=== PATIENT | female | born 1935 | race Caucasian/White ===

== ENCOUNTER 2019-08-06 20:40 | Inpatient (IN) | payer MEDICARE, MEDICAID ==
[~2019-08-06] VITALS: Ht 175.3 cm; Wt 59.9 kg
--- NOTE | 2019-08-06 21:04 | NUR ---
PT AAOX4. SENEGALESE SPEAKING. KATHIA FROM [facility]. PER SON, "THE NURSE SAW PUSS COMING OUT OF HER PRSSURE ULCER, SO THE DOCTOR ORDERED A CT AND SENT US HERE." PT NOTED CONTRACTED ON L SIDE. PT C/O PAIN BUT IS JAIL. VSS. AWAITING MD FOR EVAL.
--- NOTE | 2019-08-06 21:37 | NUR ---
LABS AND URINE SENT TO LAB
[2019-08-06 21:48] LABS: BASOPHILS # (AUTO) 0.1 /CMM (0.0-0.2); BASOPHILS % (AUTO) 0.6 % (0.0-2.0); EOSINOPHILS % (AUTO) 3.6 % (0.0-6.0); HEMATOCRIT 28 % (33-45); HEMOGLOBIN 8.8 g/dL (11.5-14.8); LYMPHOCYTES # (AUTO) 1.1 /CMM (0.8-4.8); LYMPHOCYTES % (AUTO) 10.4 % (20.0-44.0); MEAN CORPUSCULAR HGB CONC 32 g/dl (31.0-36.0); MEAN CORPUSCULAR VOLUME 78 fL (82-100); MONOCYTES # (AUTO) 0.9 /CMM (0.1-1.30); MONOCYTES % (AUTO) 9.1 % (2.0-12.0); NEUTROPHILS # (AUTO) 7.7 /CMM (1.8-8.9); NEUTROPHILS % (AUTO) 76.3 % (43.0-81.0); PLATELET COUNT (AUTO) 378 /CMM (150-450); RED BLOOD CELL COUNT(AUTO) 3.54 MIL/uL (4.0-5.2); WHITE BLOOD COUNT (AUTO) 10.2 K/uL (4.3-11.0)
[2019-08-06 21:53] LABS: APPEARANCE,URINE Turbid (CLEAR); BILIRUBIN,URINE Negative (NEGATIVE); BLOOD, URINE Negative Ery/uL (NEGATIVE); COLOR,URINE Yellow (YELLOW); KETONES,URINE Negative (NEGATIVE); LEUKOCYTE ESTERASE ,URINE Moderate (NEGATIVE); NITRITE, URINE Positive (NEGATIVE); PROTEIN,URINE >=300 mg/dl (NEGATIVE); UGLUCOSE Negative (NEGATIVE); UROBILINOGEN,URINE 0.2 EU/dL (0.2)
[2019-08-06 21:56] LABS: PH,URINE >9.0 (5.0-8.0)
[2019-08-06 22:01] LABS: CALCIUM, SERUM 8.5 mg/dL (8.5-10.1); CREATININE 1.1 mg/dL (0.6-1.3); POTASSIUM 4.2 mmol/L (3.5-5.1)
[2019-08-06 22:03] LABS: BACTERIA,URINE Many /HPF (None Seen); SQUAMOUS EPITHELIAL CELL,UR Moderate /HPF (None Seen); YEAST,URINE Many /HPF (None Seen)
[2019-08-06 22:07] LABS: BILIRUBIN,DIRECT 0.1 mg/dL (0.0-0.2); BILIRUBIN,TOTAL 0.2 mg/dL (0.2-1.0); TOTAL PROTEIN, SERUM 7.2 g/dL (6.4-8.2)
[2019-08-06 22:08] LABS: ALBUMIN 1.4 g/dL (3.4-5.0)
[2019-08-06] MEDS ORDERED: PIPERACILLIN /TAZOBACTAM 3.375 G VIAL IV ONE (22:57)
[2019-08-06] MEDS ORDERED: PIPERACILLIN /TAZOBACTAM 3.375 G in IV D5W 50 ML IV ONE (23:00)
[2019-08-06] MEDS ORDERED: ASPI-1169 PO (23:24)
[2019-08-06] MEDS ORDERED: CHOL200076 PO (23:24)
[2019-08-06] MEDS ORDERED: ONDA4TAB5 PO (23:24)
[2019-08-06] MEDS ORDERED: PROT946L PO (23:24)
[2019-08-06] MEDS ORDERED: ATOR40TA PO (23:24)
[2019-08-06] MEDS ORDERED: DICL100G16 TP (23:24)
[2019-08-06] MEDS ORDERED: MULT1TAB73 PO (23:24)
[2019-08-06] MEDS ORDERED: OXYC-132 PO (23:24)
[2019-08-06] MEDS ORDERED: NYST15PO4 TP (23:24)
[2019-08-06] MEDS ORDERED: EPOE1VIA7 SQ (23:24)
[2019-08-06] MEDS ORDERED: INSU100V42 SQ (23:24)
[2019-08-06] MEDS ORDERED: ASCO-340 PO (23:24)
[2019-08-06] MEDS ORDERED: INSU100V7 SQ (23:24)
[2019-08-06] MEDS ORDERED: FERR325T23 PO (23:24)
--- NOTE | 2019-08-06 23:34 | NUR ---
Patient is resting comfortably in bed. Easily aroused. VSS.
--- NOTE | 2019-08-06 23:42 | NUR ---
PT DENIES PAIN. VSS.
[2019-08-07] MEDS ORDERED: VANCOMYCIN 1 GM in IV D5W 250 ML IV ONE (00:30)
[2019-08-07] MEDS ORDERED: DEXTROSE 50%-WATER 50 ML DISP.SYRIN IV PRN (00:30)
[2019-08-07] MEDS ORDERED: ACETAMINOPHEN 325 MG TABLET PO PRN (00:30)
[2019-08-07] MEDS ORDERED: MAG HYDROX/AL HYDROX/SIMETH 30 ML UDC PO PRN (00:30)
[2019-08-07] MEDS ORDERED: Z GUARD REMEDY 2 OZ OINT TP PRN (00:30)
[2019-08-07] MEDS ORDERED: MAGNESIUM HYDROXIDE 30 ML UDC PO PRN (00:30)
[2019-08-07] MEDS ORDERED: ONDANSETRON HCL/PF 4 MG/2 ML VIAL IVP PRN (00:30)
--- NOTE | 2019-08-07 01:02 | NUR ---
PT'S CATHETER WAS LEAKING. NOTIFIED. REBOLLAR REMOVED AND NEW REBOLLAR INSERTED. PT HAS A LARGE SACRAL DECUBE. WOUND CULTURE DONE AND SENT TO LAB. NEW DRSG APPLIED.
--- NOTE | 2019-08-07 01:05 | NUR ---
APPROX 300 ML YELLOW CLOUDY URINE OUTPUT NOTED.
--- NOTE | 2019-08-07 01:38 | NUR ---
REPORT GIVEN TO LEMUEL BRANCH FOR CAREN
--- NOTE | 2019-08-07 02:30 | NUR ---
MS RN NOTE PT ADMITTED FROM ER WITH THE DX OF INFECTED DECUB SACRAL ULCER BY FIOR SKINNER DNP. A/O X 4, FORGETFUL, NO DISTRESS OR DISCOMFORT NOTED. DENIES PAIN. F/C INTACT AND PATENT DRAINING YELLOWISH COLOR URINE. SKIN ASSESSMENT DONE, PICTURES TAKEN AND PLACE THEM IN THE CHART. WOUND CONSULT TRIGGERED. RFA WITH SL #22 G INTACT AND PATENT. SON AT BED SIDE. ADMITTING ORDERS NOTED AND CARRIED OUT. SIDE RAILS UP X 3 AND CALL LIGHT WITHIN REACH. VSS. CONTINUE TO MONITOR HER.
[2019-08-07 02:44] VITALS: BP 155/50
[2019-08-07] MEDS ORDERED: VANCOMYCIN 1 GM VIAL ONE (03:27)
[2019-08-07] MEDS: IV NS 0.9% 1,000 ML IV PRN ×2 (03:37→17:16)
[2019-08-07 04:00] VITALS: BP 130/50
[2019-08-07] MEDS ORDERED: PIPERACILLIN /TAZOBACTAM 2.25 G VIAL IV ONE (05:50)
[2019-08-07] MEDS ORDERED: PIPERACILLIN /TAZOBACTAM 2.25 G in IV D5W 50 ML IV ONE (06:00)
--- NOTE | 2019-08-07 06:48 | NUR ---
MS RN NOTE PT IN BED AWAKE. NO DISTRESS OR DISCOMFORT NOTED. DENIES PAIN. IVF INFUSING WELL, NO S/S OF INFILTRATION NOTED. WILL ENDORSE TO DAY SHIFT NURSE FOR CONTINUE TO CARE. SIDE RAILS UP X 3 AND CALL LIGHT WITHIN REACH.
[2019-08-07 07:30] VITALS: BP 158/67
[2019-08-07] MEDS ORDERED: FEE PK DOSING 1 MIN EA MC ONE (07:56)
[2019-08-07] MEDS: BLOOD SUGAR DIAGNOSTIC 1 EACH STRIP IN SCH ×4 (08:11→22:02)
[2019-08-07] MEDS: CHOLECALCIFEROL 1,000 UNIT TABLET (VIT D3) PO SCH (09:14)
[2019-08-07] MEDS: FERROUS SULFATE (325 MG) 325 MG/TAB TABLET PO SCH ×2 (09:14→16:27)
[2019-08-07] MEDS: ASPIRIN 81 MG TAB.CHEW PO SCH (09:14)
[2019-08-07] MEDS: PROSOURCE / PROSTAT (PYXIS) 30 ML UDC PO SCH ×4 (09:14→20:39)
--- NOTE | 2019-08-07 09:29 | NUR ---
WOUND CARE CONSULT: PT FOLLOWED BY SURGICAL TEAM FOR WOUNDS. DEFER TO SURGICAL TEAM FOR WOUND TREATMENT PLAN. DISCUSSED SKIN PROTECTION WITH NURSING STAFF. FIRST STEP LOW AIRLOSS MATTRESS ON ORDER. WILL SEE PRNTila NICOLAS IN AGREEMENT WITH PLAN OF CARE.
--- NOTE | 2019-08-07 10:05 | NUR ---
MS/RN Endorsement received Report received from Leander BRANCH. Patient is A/O x3, showing no signs of acute distress or SOB, saturating >95% ib RA. IV line in the RFA is clean and intact running NS @ 75ml/hr. Patient has no complaints of pain at this time. Per shift leader RN, no insulin coverage for this AM because patient is refusing to eat. Bed is in lowest position, side rails x3 in upright position, call light is within reach and patient is aware of how to call for assistance when needed. Will continue with plan of care.
[2019-08-07] MEDS: ZOSYN IVPB 2.25 G in IV D5W 50ml IV SCH ×2 (11:30→17:12)
--- NOTE | 2019-08-07 12:00 | NUR ---
MS/RN NOTE Patient not given insulin coverage due to not eating breakfast and refusing to eat lunch. She states she is not hungry, only wants juice at the moment.
[2019-08-07] MEDS: INSULIN REGULAR, HUMAN 100 UNIT/ML 3 ML VIAL SQ PRN ×3 (17:07→22:07)
--- NOTE | 2019-08-07 19:40 | NUR ---
RN NOTES RECEIVED PATIENT ASLEEP RESPONSIVE TO VERBAL AND TACTILE STIMULI. BREATHING NORMAL NO SOB NOTED. RESPIRATION EVEN UNLABORED. SON AT BED SIDE. SKIN WARM AND DRY TOUCH. RFA IV #22 INTACT FLUSHED WELL. FC INTACT URINE DARNING WELL. SAFETY MEASURES IN PLACE. CALL LIGHT WITHIN REACH. BED IN LOW AND LOCKED POSITION. WILL CONT TO WITH PLAN OF CARE.
--- NOTE | 2019-08-07 19:45 | NUR ---
MS/RN CLOSING NOTE Patient is A/O x3, showing no signs of acute distress or SOB, saturating >95% on RA. IV line in the RFA is clean and intact running NS @ 75ml/hr. Wound care done. Patient turned and repositioned [id number]. All patient needs met, all due meds given. Family is at the bedside. Bed is in lowest position, side rails x3 in upright position, call light is within reach and patient is aware of how to call for assistance when needed. Will endorse to shift commander.
[2019-08-07 20:00] VITALS: BP 141/75
[2019-08-07] MEDS: ATORVASTATIN 40 MG TABLET PO SCH (21:45)
[2019-08-07] MEDS: INSULIN GLARGINE, 100 UNIT/ML CARTRIDGE SQ SCH (22:02)
[2019-08-08] MEDS: ZOSYN IVPB 2.25 G in IV D5W 50ml IV SCH ×4 (00:12→17:15)
[2019-08-08 04:00] VITALS: BP 134/41
[2019-08-08] MEDS: VANCOMYCIN 1 GM in IV D5W 250 ML IV SCH (04:04)
[2019-08-08] MEDS: IV NS 0.9% 1,000 ML IV PRN ×2 (06:01→22:34)
[2019-08-08 06:54] LABS: BASOPHILS # (AUTO) 0.1 /CMM (0.0-0.2); BASOPHILS % (AUTO) 0.6 % (0.0-2.0); EOSINOPHILS % (AUTO) 5.5 % (0.0-6.0); HEMATOCRIT 25 % (33-45); HEMOGLOBIN 7.8 g/dL (11.5-14.8); LYMPHOCYTES # (AUTO) 1.2 /CMM (0.8-4.8); LYMPHOCYTES % (AUTO) 14.3 % (20.0-44.0); MEAN CORPUSCULAR HGB CONC 32 g/dl (31.0-36.0); MEAN CORPUSCULAR VOLUME 77 fL (82-100); MONOCYTES # (AUTO) 0.8 /CMM (0.1-1.30); MONOCYTES % (AUTO) 9.3 % (2.0-12.0); NEUTROPHILS # (AUTO) 5.9 /CMM (1.8-8.9); NEUTROPHILS % (AUTO) 70.3 % (43.0-81.0); PLATELET COUNT (AUTO) 341 /CMM (150-450); RED BLOOD CELL COUNT(AUTO) 3.17 MIL/uL (4.0-5.2); WHITE BLOOD COUNT (AUTO) 8.3 K/uL (4.3-11.0)
--- NOTE | 2019-08-08 07:11 | NUR ---
RN NOTES PATIENT RESTING IN BED NO S/S OF DISTRESS NOTED. SKIN WARM AND DRY TO TOUCH. BREATHING NORMAL NO SOB NOTED. PATIENT RECEIVED ALL OF HER DUE MEDS TOLERATED WELL. IVF INFUSING WELL, NO S/S OF INFILTRATION NOTED. VS WITHIN NORMAL. PATIENT TURNED AND REPOSITION Q2H. ALL SAFETY MEASURES IN PLACE, CALL LIGHT WITHIN REACH, BED IN LOW/LOCKED POSITION, ENDORSED THE PATIENT TO AM NURSE.
--- NOTE | 2019-08-08 07:34 | NUR ---
Handoff from Keeley Brandon RN. Jarod Chua
[2019-08-08 07:36] LABS: ALANINE AMINOTRANSFERASE < 6 U/L (12-78); ALKALINE PHOSPHATASE 87 U/L (46-116); ASPARTATE AMINOTRANSFERASE 16 U/L (15-37); BILIRUBIN,TOTAL 0.3 mg/dL (0.2-1.0); CALCIUM, SERUM 7.7 mg/dL (8.5-10.1); CARBON DIOXIDE 23 mmol/L (21-32); CHLORIDE 102 mmol/L (98-107); GLUCOSE 120 mg/dL (74-106); MAGNESIUM 1.6 mg/dL (1.8-2.4); PHOSPHORUS 2.2 mg/dL (2.5-4.9); POTASSIUM 3.9 mmol/L (3.5-5.1); SODIUM SERUM 132 mmol/L (136-145); TOTAL PROTEIN, SERUM 6.3 g/dL (6.4-8.2); UREA NITROGEN, BLOOD 27 mg/dL (7-18)
[2019-08-08] MEDS: BLOOD SUGAR DIAGNOSTIC 1 EACH STRIP IN SCH ×4 (07:39→22:33)
[2019-08-08 07:53] LABS: ALBUMIN 1.1 g/dL (3.4-5.0)
[2019-08-08 07:59] LABS: CHOLESTEROL 68 mg/dL (<200); HDL CHOLESTEROL 27 mg/dL (40-60); LDL 43 mg/dL (0-99); THYROID STIMULATING HORMONE 1.663 uIU/mL (0.358-3.74); TRIGLYCERIDES 56 mg/dL (30-150)
[2019-08-08 08:00] VITALS: BP 158/78
[2019-08-08 08:23] VITALS: BP 158/78
[2019-08-08] MEDS: PROSOURCE / PROSTAT (PYXIS) 30 ML UDC PO SCH ×4 (09:13→22:34)
[2019-08-08] MEDS: CHOLECALCIFEROL 1,000 UNIT TABLET (VIT D3) PO SCH (09:15)
[2019-08-08] MEDS: ASPIRIN 81 MG TAB.CHEW PO SCH (09:15)
[2019-08-08] MEDS: FERROUS SULFATE (325 MG) 325 MG/TAB TABLET PO SCH ×2 (09:15→16:54)
[2019-08-08] MEDS ORDERED: Magnesium 1GM/D5W 100ML PREMIX 100 ML IV ONE (09:45)
--- NOTE | 2019-08-08 10:21 | NUR ---
Magnesium one gram infusing well. CT call. Request for team to call prior to taking patient as she is screaming when moved to look at wound with Nurse Practitioner this morning. Will give as needed medication for pain. Jarod Chua RN
--- NOTE | 2019-08-08 11:33 | NUR ---
Patient in Radiology/CT at this time. Jarod Chua RN
[2019-08-08] MEDS: INSULIN REGULAR, HUMAN 100 UNIT/ML 3 ML VIAL SQ PRN ×2 (12:02→17:30)
--- NOTE | 2019-08-08 13:06 | NUR ---
Son of patient request puree diet, wants to avoid g-tube, would like a swallow evaluation, bowel regimen as well to include dulcolax suppository daily if no bowel movement. Dietary was consulted to discuss patient likes and dislikes. Patient family member would also like to discuss morphine drip/hospice care for patient. Aware patient has had a CT this morning to check for osteomyelitis. Jarod Chua RN
[2019-08-08] MEDS ORDERED: K PHOS NEUTRAL 250 MG TABLET PO ONE (15:00)
[2019-08-08 16:00] VITALS: BP 141/59
[2019-08-08 16:45] VITALS: BP 141/59
[2019-08-08 20:00] VITALS: BP 143/49
[2019-08-08] MEDS: HYDROCODONE/APAP 5/325MG 1 EACH TABLET PO PRN (22:32)
[2019-08-08] MEDS: ATORVASTATIN 40 MG TABLET PO SCH (22:33)
[2019-08-08] MEDS: INSULIN GLARGINE, 100 UNIT/ML CARTRIDGE SQ SCH (22:43)
[2019-08-09] MEDS: ZOSYN IVPB 2.25 G in IV D5W 50ml IV SCH ×4 (00:41→17:33)
[2019-08-09 03:04] LABS: BASOPHILS # (AUTO) 0.1 /CMM (0.0-0.2); BASOPHILS % (AUTO) 0.6 % (0.0-2.0); EOSINOPHILS % (AUTO) 4.8 % (0.0-6.0); HEMATOCRIT 26 % (33-45); HEMOGLOBIN 8.2 g/dL (11.5-14.8); LYMPHOCYTES # (AUTO) 1.4 /CMM (0.8-4.8); LYMPHOCYTES % (AUTO) 13.7 % (20.0-44.0); MEAN CORPUSCULAR HGB CONC 32 g/dl (31.0-36.0); MEAN CORPUSCULAR VOLUME 78 fL (82-100); MONOCYTES # (AUTO) 0.9 /CMM (0.1-1.30); NEUTROPHILS # (AUTO) 7.5 /CMM (1.8-8.9); NEUTROPHILS % (AUTO) 71.9 % (43.0-81.0); PLATELET COUNT (AUTO) 352 /CMM (150-450); RED BLOOD CELL COUNT(AUTO) 3.36 MIL/uL (4.0-5.2); WHITE BLOOD COUNT (AUTO) 10.4 K/uL (4.3-11.0)
[2019-08-09 03:18] LABS: CALCIUM, SERUM 7.7 mg/dL (8.5-10.1); PHOSPHORUS 2.8 mg/dL (2.5-4.9); POTASSIUM 3.6 mmol/L (3.5-5.1)
[2019-08-09 04:00] VITALS: BP 109/36
[2019-08-09] MEDS: VANCOMYCIN 1 GM in IV D5W 250 ML IV SCH (04:15)
--- NOTE | 2019-08-09 07:10 | NUR ---
RN OPENING NOTES: Received pt resting in bed, A&Ox3. No acute distress noted. Breathing even and unlabored. Has IV site on right hand #20 w/ NS running at 75cc/hr. IV site patent and flushing, dressing c/d/i. Has yeh catheter in place, patent and draining yellow urine. Safety measures in place, bed in lowest and locked position, side rails up x3, call light w/in reach. Will continue to monitor. Addendum: 08/09/19 at 1956 by SHARON TALBOT RN INCORRECT TIME. SHOULD BE 1909
--- NOTE | 2019-08-09 07:15 | NUR ---
MS RN NOTES PATIENT IN BED ALERT ORIENTED X3. NO ACUTE DISTRESS NOTED, BREATHING UNLABORED. NO SOB NOTED. IV ACCESS PATENT AND INTACT, NO REDNESS OR SWELLING NOTED. SAFETY MEASURES IN PLACE. CALL LIGHT WITHIN REACH. WILL CONTINUE TO MONITOR ACCORDINGLY.
[2019-08-09] MEDS: BLOOD SUGAR DIAGNOSTIC 1 EACH STRIP IN SCH ×4 (07:48→21:09)
[2019-08-09 08:00] VITALS: BP 149/54
[2019-08-09] MEDS: CHOLECALCIFEROL 1,000 UNIT TABLET (VIT D3) PO SCH (08:43)
[2019-08-09] MEDS: PROSOURCE / PROSTAT (PYXIS) 30 ML UDC PO SCH ×4 (08:43→21:03)
[2019-08-09] MEDS: FERROUS SULFATE (325 MG) 325 MG/TAB TABLET PO SCH ×2 (08:43→17:33)
[2019-08-09] MEDS: ASPIRIN 81 MG TAB.CHEW PO SCH (08:43)
--- NOTE | 2019-08-09 10:57 | NUR ---
WOUND CARE CONSULT: PT PRESENTS WITH STAGE 4 SACRAL ULCER WHICH IS NOTED TO BLEED EASILY AND WITH ODOR, PRESENT ON ADMISSION. RECOMMENDATIONS MADE FOR SKIN PROTECTION AND WOUND CARE. DISCUSSED WITH NURSING STAFF, DR BRAEDEN POSADAS (WOUND SURGEON WHO WAS PREVIOUSLY CONSULTED FOR CASE) AND WITH FIRE APPARATUS ENGINEER. WILL SEE PRN. NICOLAS IN AGREEMENT WITH PLAN OF CARE. FIRST STEP LOW AIRLOSS MATTRESS ON ORDER. Addendum: 08/09/19 at 1101 by JARRELL CASTELLANOS WNDNU Amended: Links added.
--- NOTE | 2019-08-09 11:06 | NUR ---
MS RN NOTES CALLED [facility] TO FOLLOW UP I MATTRESS SAID THEY WILL FOLLOW UP WITH OUTSIDE VENDOR FOR DELIVERY.
[2019-08-09 12:00] VITALS: BP 102/60
[2019-08-09] MEDS: GLUCERNA SHAKE 237 ML CAN PO SCH (12:07)
[2019-08-09] MEDS: DAKINS QUARTER STRENGTH (0.125%) 480 ML BOTTLE TOP SCH (12:07)
[2019-08-09] MEDS: HYDROCODONE/APAP 5/325MG 1 EACH TABLET PO PRN (12:57)
[2019-08-09 16:00] VITALS: BP 146/61
[2019-08-09] MEDS: IV NS 0.9% 1,000 ML IV PRN (17:33)
[2019-08-09] MEDS: INSULIN REGULAR, HUMAN 100 UNIT/ML 3 ML VIAL SQ PRN ×2 (17:53→21:15)
--- NOTE | 2019-08-09 18:50 | NUR ---
MS RN NOTES PATIENT IN BED ALERT ORIENTED X3. NO ACUTE DISTRESS NOTED, BREATHING UNLABORED. NO SOB NOTED. IV ACCESS PATENT AND INTACT, NO REDNESS OR SWELLING NOTED. PATIENT ON KCI MATTRESS. NEEDS ATTENDED AND ANTICIPATED. SAFETY MEASURES IN PLACE. CALL LIGHT WITHIN REACH. WILL ENDORSE TO NIGHT NURSE FOR CONTINUITY OF CARE.
--- NOTE | 2019-08-09 19:10 | NUR ---
RN OPENING NOTES: Received pt resting in bed, A&Ox3. No acute distress noted. Breathing even and unlabored. Has IV site on right hand #20 w/ NS running at 75cc/hr. IV site patent and flushing, dressing c/d/i. Has yeh catheter in place, patent and draining yellow urine. Safety measures in place, bed in lowest and locked position, side rails up x3, call light w/in reach. Will continue to monitor.
[2019-08-09 20:00] VITALS: BP 161/78
[2019-08-09] MEDS: ATORVASTATIN 40 MG TABLET PO SCH (21:03)
[2019-08-09] MEDS: INSULIN GLARGINE, 100 UNIT/ML CARTRIDGE SQ SCH (21:11)
[2019-08-10] MEDS: ZOSYN IVPB 2.25 G in IV D5W 50ml IV SCH ×3 (00:01→11:29)
[2019-08-10 04:00] VITALS: BP 144/78
[2019-08-10] MEDS: VANCOMYCIN 1 GM in IV D5W 250 ML IV SCH (04:36)
--- NOTE | 2019-08-10 07:04 | NUR ---
RN CLOSING NOTES: Pt in bed resting. On RA, no respiratory distress noted. No acute changes noted during shift. IV site on left had, #20, patent and flushing. NS running at 75cc/hr. Dressing c/d/i. Madrid cath patent and draining yellow urine. All medications given as ordered. Safety measures in place. Bed in lowest and locked position, side rails up x3, call light w/in reach. Will endorse to AM nurse for CAREN.
[2019-08-10 07:18] LABS: CALCIUM, SERUM 7.6 mg/dL (8.5-10.1); CREATININE 0.9 mg/dL (0.6-1.3)
[2019-08-10 08:00] VITALS: BP 166/56
[2019-08-10] MEDS: ESCITALOPRAM OXALATE (10 MG) 10 MG TABLET PO SCH (08:47)
[2019-08-10] MEDS: ASPIRIN 81 MG TAB.CHEW PO SCH (08:47)
[2019-08-10] MEDS: PROSOURCE / PROSTAT (PYXIS) 30 ML UDC PO SCH ×4 (08:47→21:33)
[2019-08-10] MEDS: CHOLECALCIFEROL 1,000 UNIT TABLET (VIT D3) PO SCH (08:47)
[2019-08-10] MEDS: BLOOD SUGAR DIAGNOSTIC 1 EACH STRIP IN SCH ×4 (08:48→21:34)
[2019-08-10] MEDS: GLUCERNA SHAKE 237 ML CAN PO SCH (08:48)
[2019-08-10] MEDS: MORPHINE SULFATE INJ 2 MG/ML DISP.SYRIN IV PRN ×3 (08:50→18:06)
[2019-08-10] MEDS: FERROUS SULFATE (325 MG) 325 MG/TAB TABLET PO SCH ×2 (08:52→17:22)
[2019-08-10] MEDS: DAKINS QUARTER STRENGTH (0.125%) 480 ML BOTTLE TOP SCH (09:48)
[2019-08-10] MEDS: IV NS 0.9% 1,000 ML IV PRN (11:30)
[2019-08-10 16:00] VITALS: BP 159/74
[2019-08-10] MEDS: HYDROCODONE/APAP 5/325MG 1 EACH TABLET PO PRN ×2 (17:22→21:36)
[2019-08-10] MEDS: LEVOFLOXACIN (500MG) 500 MG TABLET PO SCH (17:24)
[2019-08-10 20:00] VITALS: BP 155/69
[2019-08-10 20:17] VITALS: BP 155/69
[2019-08-10] MEDS: ATORVASTATIN 40 MG TABLET PO SCH (21:36)
[2019-08-10] MEDS: INSULIN REGULAR, HUMAN 100 UNIT/ML 3 ML VIAL SQ PRN (21:37)
[2019-08-10] MEDS: INSULIN GLARGINE, 100 UNIT/ML CARTRIDGE SQ SCH (21:48)
--- NOTE | 2019-08-10 21:49 | NUR ---
lantus insulin held. poor appetite patient has poor apetite. only ate half cup of pudding with prostat. patient keeps stating "no more." bg was 113. lantus insulin held to prevent possibilty of hypoglycemia in am.
[2019-08-11] MEDS: IV NS 0.9% 1,000 ML IV PRN ×2 (01:57→21:59)
[2019-08-11 04:00] VITALS: BP 147/83
[2019-08-11] MEDS: VANCOMYCIN 1 GM in IV D5W 250 ML IV SCH (04:28)
[2019-08-11] MEDS: HYDROCODONE/APAP 5/325MG 1 EACH TABLET PO PRN ×2 (04:32→14:50)
--- NOTE | 2019-08-11 07:07 | NUR ---
paged dr. rodas for critical lab of wbc of 31.9 spoke with answering service. no one is armor reconnaissance vehicle crewman till 8am. asked it they could page dr. rodas as he is primary doctor.
[2019-08-11] MEDS: BLOOD SUGAR DIAGNOSTIC 1 EACH STRIP IN SCH ×4 (07:41→21:59)
[2019-08-11 08:00] VITALS: BP 154/61
[2019-08-11 08:02] LABS: CALCIUM, SERUM 6.3 mg/dL (8.5-10.1); CREATININE 0.8 mg/dL (0.6-1.3); POTASSIUM 3.3 mmol/L (3.5-5.1)
[2019-08-11] MEDS: CHOLECALCIFEROL 1,000 UNIT TABLET (VIT D3) PO SCH (08:47)
[2019-08-11] MEDS: FERROUS SULFATE (325 MG) 325 MG/TAB TABLET PO SCH ×2 (08:47→17:45)
[2019-08-11] MEDS: ESCITALOPRAM OXALATE (10 MG) 10 MG TABLET PO SCH (08:47)
[2019-08-11] MEDS: ASPIRIN 81 MG TAB.CHEW PO SCH (08:47)
[2019-08-11] MEDS: GLUCERNA SHAKE 237 ML CAN PO SCH (09:00)
[2019-08-11] MEDS: PROSOURCE / PROSTAT (PYXIS) 30 ML UDC PO SCH ×4 (09:00→21:42)
[2019-08-11] MEDS: DAKINS QUARTER STRENGTH (0.125%) 480 ML BOTTLE TOP SCH (09:00)
[2019-08-11] MEDS ORDERED: POTASSIUM CHLORIDE 20 MEQ TAB.PRT.SR PO SCH (09:30)
--- NOTE | 2019-08-11 11:00 | NUR ---
MS RN NOTES PATIENT'S BLOOD SUGAR 91. CONTACTED [facility] WATER REGULATOR AND VALVE REPAIRER DOCTOR AT 2250 REGARDING SCHEDULED MEDICATION INSULIN LANTUS 10 UNITS. PER FIOR SKINNER, HOLD INSULIN DOSE.
[2019-08-11 16:00] VITALS: BP 164/83
[2019-08-11] MEDS: INSULIN REGULAR, HUMAN 100 UNIT/ML 3 ML VIAL SQ PRN (17:49)
[2019-08-11] MEDS: LEVOFLOXACIN (500MG) 500 MG TABLET PO SCH (17:54)
--- NOTE | 2019-08-11 19:40 | NUR ---
Pt in bed resting. On RA, no respiratory distress noted. IV site on left had, #20, patent and flushing. NS running at 75ml/hr. Dressing changed with wound treatment as ordered. Madrid cath patent and draining yellow urine. Safety measures in place. Bed in lowest and locked position, side rails up x3, call light w/in reach. Will endorse to next shift nurse for CAREN.
--- NOTE | 2019-08-11 19:45 | NUR ---
MS RN OPENING NOTES PATIENT AWAKE IN BED. A/OX2. ON ROOM AIR. NO S/S OF SOB OR C/O PAIN AT THIS TIME. IV PRESENT ON RIGHT HAND, SIZE 20, INTACT & PATENT, NS RUNNING AT 75ML/HR. REBOLLAR CATH PRESENT AND DRAINING WELL. SAFETY MEASURES IN PLACE. BED LOCKED, ALARM ON, CALL LIGHT WITHIN REACH. WILL CONTINUE TO MONITOR.
[2019-08-11 20:00] VITALS: BP 144/89
[2019-08-11] MEDS: ATORVASTATIN 40 MG TABLET PO SCH (21:42)
[2019-08-11] MEDS: INSULIN GLARGINE, 100 UNIT/ML CARTRIDGE SQ SCH (22:00)
[2019-08-11 22:29] VITALS: BP 144/89
[2019-08-12] VITALS: BP 161/56
[2019-08-12] MEDS: HYDROCODONE/APAP 5/325MG 1 EACH TABLET PO PRN ×2 (01:39→09:02)
[2019-08-12 03:20] LABS: CALCIUM, SERUM 7.5 mg/dL (8.5-10.1); CREATININE 0.8 mg/dL (0.6-1.3); POTASSIUM 3.8 mmol/L (3.5-5.1)
[2019-08-12] MEDS: VANCOMYCIN 1 GM in IV D5W 250 ML IV SCH (04:10)
[2019-08-12 05:47] VITALS: BP 161/56
[2019-08-12] MEDS: BLOOD SUGAR DIAGNOSTIC 1 EACH STRIP IN SCH ×4 (07:01→21:46)
--- NOTE | 2019-08-12 07:33 | NUR ---
MS RN CLOSING NOTES PATIENT AWAKE IN BED. A/OX2. ON ROOM AIR. NO S/S OF SOB OR C/O PAIN AT THIS TIME. IV ON RIGHT HAND INFILTRATED. UNABLE TO START NEW IV WITH CHARGE NURSE. PATIENT CURRENTLY AWAITING PICC LINE INSERTION. REBOLLAR CATH PRESENT AND DRAINING WELL. SAFETY MEASURES IN PLACE. BED LOCKED, ALARM ON, CALL LIGHT WITHIN REACH. WILL ENDORSE TO DAY SHIFT NURSE TO FOLLOW PLAN OF CARE AND TO FOLLOW UP WITH PICC LINE NURSE.
--- NOTE | 2019-08-12 07:40 | NUR ---
RN OPENING NOTE: RECEIVED PATIENT IN BED THIS MORNING. NO SIGNS OF RESPIRATORY DISTRESS NOTED. REBOLLAR CATHETER DRAINING WELL. PATIENT HAS BUE CONTRACTIONS. SAFETY MEASURES IMPLEMENTED, BED IN LOWEST POSITION, LOCKED, SIDE RAILS UP X2, CALL LIGHT WITHIN REACH. WILL CONTINUE TO MONITOR PATIENT FOR ANY CHANGES.
[2019-08-12 08:00] VITALS: BP 171/55
[2019-08-12] MEDS: ASPIRIN 81 MG TAB.CHEW PO SCH (08:54)
[2019-08-12] MEDS: FERROUS SULFATE (325 MG) 325 MG/TAB TABLET PO SCH ×2 (08:54→16:08)
[2019-08-12] MEDS: CHOLECALCIFEROL 1,000 UNIT TABLET (VIT D3) PO SCH (08:54)
[2019-08-12] MEDS: PROSOURCE / PROSTAT (PYXIS) 30 ML UDC PO SCH ×4 (08:54→21:38)
[2019-08-12] MEDS: ESCITALOPRAM OXALATE (10 MG) 10 MG TABLET PO SCH (08:54)
[2019-08-12] MEDS: GLUCERNA SHAKE 237 ML CAN PO SCH (09:03)
[2019-08-12] MEDS: DAKINS QUARTER STRENGTH (0.125%) 480 ML BOTTLE TOP SCH (09:03)
--- NOTE | 2019-08-12 11:13 | NUR ---
UNABLE TO START PERIPHERAL IVSL. RETRIEVED VEIN FINDER AND STILL NO LUCK. PATIENT'S BUE IS CONTRACTED, PATIENT HAS BRUISING ON HANDS WELL. CN ATTEMPTED AND NO LUCK WELL. Addendum: 08/12/19 at 1836 by LEONOR MOREAU RN PER CNS, PICC LINE NURSE WILL ARRIVE AT 1900 FOR PICC LINE INSERTION.
[2019-08-12] MEDS: INSULIN REGULAR, HUMAN 100 UNIT/ML 3 ML VIAL SQ PRN (13:34)
[2019-08-12 16:00] VITALS: BP 149/51
[2019-08-12] MEDS: LEVOFLOXACIN (500MG) 500 MG TABLET PO SCH (18:03)
--- NOTE | 2019-08-12 19:32 | NUR ---
RN OPENING NOTE: PATIENT IS IN BED RESTING. NO SIGNS OF RESPIRATORY DISTRESS NOTED. NO SIGNS OF ACUTE DISTRESS NOTED. SAFETY MEASURES IMPLEMENTED, BED IN LOWEST POSITION, LOCKED, SIDE RAILS UP X2, CALL LIGHT WITHIN REACH. ENDORSED TO ONCOMING RN FOR CONTINUITY OF CARE.
[2019-08-12 20:00] VITALS: BP 152/51
--- NOTE | 2019-08-12 20:08 | NUR ---
MS RN OPENING NOTES PATIENT RECEIVED RESTING IN BED A/O X2 FRENCH SPEAKING. STABLE ON RA WITH BREATHING EVEN AND UNLABORED, NO SOB NOTED. NO SIGNS OF ACUTE DISTRESS. NO COMPLAINTS OF PAIN OR DISCOMFORT. REBOLLAR NOTED AND IN PLACE DRAINING CLEAR YELLOW URINE. AWAITING PICC LINE PLACEMENT. SAFETY PRECAUTIONS IN PLACE WITH BED IN LOWEST POSITION, CALL LIGHT WITHIN REACH, BREAKS ON, AND SIDE RAILS UP. WILL CONTINUE TO MONITOR THROUGHOUT THE NIGHT.
[2019-08-12] MEDS: ATORVASTATIN 40 MG TABLET PO SCH (21:38)
[2019-08-12] MEDS: INSULIN GLARGINE, 100 UNIT/ML CARTRIDGE SQ SCH (21:48)
--- NOTE | 2019-08-12 23:40 | NUR ---
MS RN NOTES PICC LINE RN CAME AND PLACED LINE ON PATIENTS LEFT LEG. NO BLEEDING PRESENT. WILL CONTINUE TO MONITOR.
[2019-08-13 04:00] VITALS: BP 153/55
[2019-08-13] MEDS: IV NS 0.9% 1,000 ML IV PRN (05:05)
--- NOTE | 2019-08-13 06:39 | NUR ---
MS RN CLOSING NOTES PATIENT RESTING IN BED A/O X2 UPPER SORBIAN SPEAKING. STABLE ON RA WITH BREATHING EVEN AND UNLABORED, NO SOB NOTED. NO SIGNS OF ACUTE DISTRESS. NO COMPLAINTS OF PAIN OR DISCOMFORT. REBOLLAR NOTED AND IN PLACE DRAINING CLEAR YELLOW URINE. PICC LINE PLACED ON LEFT FEMORAL RUNNING NS @ 75ML/ HR. SAFETY PRECAUTIONS IN PLACE WITH BED IN LOWEST POSITION, CALL LIGHT WITHIN REACH, BREAKS ON, AND SIDE RAILS UP. PATIENT WAS KEPT CLEAN AND DRY THROUGHOUT THE NIGHT, WOUND CARE DONE. ALL NEEDS ATTENDED TO. WILL ENDORSE TO ONCOMING SHIFT ABOUT CAREN.
[2019-08-13] MEDS: BLOOD SUGAR DIAGNOSTIC 1 EACH STRIP IN SCH ×3 (06:49→17:49)
[2019-08-13 06:59] LABS: CALCIUM, SERUM 7.7 mg/dL (8.5-10.1); CREATININE 0.8 mg/dL (0.6-1.3); POTASSIUM 3.7 mmol/L (3.5-5.1)
--- NOTE | 2019-08-13 07:25 | NUR ---
MS/RN OPENING NOTE Patient is resting in bed, A/O x2, with moments of confusion. No signs of acute distress or SOB, stable on RA. Madrid catheter noted with clear yellow output. Midline in left leg noted, clean and intact. Patient has no complaints of pain at this time. Bed is in lowest position, side rails x3 in upright position, safety, fall and aspiration precautions enforced. Will continue with plan of care.
[2019-08-13 08:00] VITALS: BP 161/62
[2019-08-13] MEDS: ESCITALOPRAM OXALATE (10 MG) 10 MG TABLET PO SCH (08:42)
[2019-08-13] MEDS: GLUCERNA SHAKE 237 ML CAN PO SCH (08:42)
[2019-08-13] MEDS: FERROUS SULFATE (325 MG) 325 MG/TAB TABLET PO SCH ×2 (08:42→17:49)
[2019-08-13] MEDS: PROSOURCE / PROSTAT (PYXIS) 30 ML UDC PO SCH ×3 (08:42→17:49)
[2019-08-13] MEDS: CHOLECALCIFEROL 1,000 UNIT TABLET (VIT D3) PO SCH (08:42)
[2019-08-13] MEDS: ASPIRIN 81 MG TAB.CHEW PO SCH (08:42)
[2019-08-13] MEDS: HYDROCODONE/APAP 5/325MG 1 EACH TABLET PO PRN (08:53)
[2019-08-13 09:00] VITALS: BP 161/62
[2019-08-13] MEDS ORDERED: VANCOMYCIN 0.75 GM in IV D5W 250 ML IV SCH (09:00)
[2019-08-13 09:42] VITALS: BP 150/53
--- NOTE | 2019-08-13 09:43 | NUR ---
MS/RN NOTE Pain medication given at 0953 and rechecked BP 150/53 HR 66. Patient is sleeping at this time.
[2019-08-13] MEDS: DAKINS QUARTER STRENGTH (0.125%) 480 ML BOTTLE TOP SCH (09:52)
[2019-08-13] MEDS ORDERED: LEVO500T2 PO (12:20)
[2019-08-13] MEDS ORDERED: RXVAN XX (12:20)
[2019-08-13] MEDS ORDERED: ESCI10TA PO (12:20)
[2019-08-13] MEDS: MORPHINE SULFATE INJ 2 MG/ML DISP.SYRIN IV PRN ×2 (13:33→19:22)
[2019-08-13 16:00] VITALS: BP_SYST 157; BP_DIAS 67; BP_DIAS 69
[2019-08-13] MEDS: LEVOFLOXACIN (500MG) 500 MG TABLET PO SCH (17:50)
--- NOTE | 2019-08-13 19:01 | NUR ---
MS/RN CLOSING NOTE Patient is resting in bed, A/O x2, with moments of confusion. No signs of acute distress or SOB, stable on RA. Madrid catheter noted with clear yellow output 700cc out today. Midline in left leg noted, clean and intact. Patient has no complaints of pain at this time. All patient needs met, all due meds given. DC order placed, waiting for patient to be picked up by EMS. Family is at the bedside. Patient will leave with midline to continue IV abx, per MD order. Photos taken of skin and placed in chart. Bed is in lowest position, side rails x3 in upright position, safety, fall and aspiration precautions enforced. Will endorse to night clerk auditor.
--- NOTE | 2019-08-13 19:42 | NUR ---
MS/AIRCRAFT PARTS ASSEMBLER NOTE Patient is medically stable for discharge. A/O x2, stable on RA. Patient is agitated when EMS is touching her, complaining of pain while taking the blood pressure. BP is 170/80. Morphine 2mg IV given for pain in the sacrum due to stage 4 sacral ulcer. BP rechecked 156/67. Called [facility] and spoke with RNfrank to transport patient. Midline kept for continue abx at SNF per MD. Patient left unit with EMS and family en route to [facility].
== END 2019-08-13 19:49 | DRG 602 ==
LOC: ER 20:48 → MEDSG1 08-07 00:44
PROVIDERS: ADMIT Nurse Practitioner Acute Care; ATTEND Family Medicine
PROC: 02HV33Z Insertion of Infusion Device into Superior Vena Cava, Percutaneous Approach (ICD-10-PCS; principal; 2019-08-08)
PROC: B548ZZA Ultrasonography of Superior Vena Cava, Guidance (ICD-10-PCS; 2019-08-08)
DX: L03.312 Cellulitis of back [any part except buttock and flank] (principal); E43 Unspecified severe protein-calorie malnutrition; G93.41 Metabolic encephalopathy; R53.2 Functional quadriplegia; N17.0 Acute kidney failure with tubular necrosis; M46.28 Osteomyelitis of vertebra, sacral and sacrococcygeal region; N39.0 Urinary tract infection, site not specified; D68.59 Other primary thrombophilia; E87.1 Hypo-osmolality and hyponatremia; Z68.1 Body mass index [BMI] 19.9 or less, adult; R64 Cachexia; E11.69 Type 2 diabetes mellitus with other specified complication; G30.9 Alzheimer's disease, unspecified; E11.22 Type 2 diabetes mellitus with diabetic chronic kidney disease; E78.5 Hyperlipidemia, unspecified; F02.80 Dementia in other diseases classified elsewhere, unspecified severity, without behavioral disturbance, psychotic disturbance, mood disturbance, and anxiety; I12.9 Hypertensive chronic kidney disease with stage 1 through stage 4 chronic kidney disease, or unspecified chronic kidney disease; N18.9 Chronic kidney disease, unspecified; M48.00 Spinal stenosis, site unspecified; M62.50 Muscle wasting and atrophy, not elsewhere classified, unspecified site; Z79.4 Long term (current) use of insulin; Z79.82 Long term (current) use of aspirin; Z79.899 Other long term (current) drug therapy; D50.9 Iron deficiency anemia, unspecified; E86.1 Hypovolemia; B96.89 Other specified bacterial agents as the cause of diseases classified elsewhere; F32.9 Major depressive disorder, single episode, unspecified; G89.29 Other chronic pain; F09 Unspecified mental disorder due to known physiological condition; M19.012 Primary osteoarthritis, left shoulder; L89.150 Pressure ulcer of sacral region, unstageable
CPT/HCPCS: 36415; 72192-TC; 74018; 80048-TC; 80053-TC; 80061-TC; 80076-TC; 80202-TC; 81000-TC; 82962-TC; 83690-TC; 83735-TC; 84100-TC; 84443-TC; 85025-TC; 85652-TC; 85730-TC; 87040-TC; 87070-TC; 87081-TC; 87086-TC; 87186-TC; 92611-TC; A6253; A6403; C1751; G0378; J1815; J2270; J2543; J3370; J3475; J7030; J7060